=== PATIENT | female | born 1945 | race Caucasian/White ===

== ENCOUNTER 2021-10-23 07:27 | Day surgery (SDC) | payer MEDICARE ==
[2021-10-23] VITALS (8 sets, daily range): BP systolic 94–167; BP diastolic 44–81; PULSE 23–63; TEMP 97.7
[~2021-10-23] VITALS: Ht 175.3 cm; Wt 94.1 kg
[~2021-10-23 07:27] MED LIST: LASIX 20MG TABL20 MG PO; LOPRESSOR 550 MG/TAB PO; MICARDIS HCT 251 TAB PO; MOTRIN 600600 MG/TAB PO; NORVASC 5MG5 MG/TAB PO; ZOCOR 20MG20 MG PO
[2021-10-23 08:11] LABS: HEMATOCRIT 37.1 % (37.0-47.0); MEAN CELL VOLUME 87 fl (80.0-100.0); MEAN CORPUSCULAR HEMOGLOBIN 30 pg (27-31); MEAN CORPUSCULAR HGB CONC 35 g/dl (33.0-37.0); MEAN PLATELET VOLUME 8.7 fl (7.4-10.4); PLATELET COUNT 204 K/mm3 (130-400); RED BLOOD COUNT 4.27 M/mm3 (4.10-5.30); REDCELL DISTRIBUTION WIDTH-CV 11.7 % (11.5-14.5)
[2021-10-23 08:18] LABS: INR 1.8 (0.8-3.0)
[2021-10-23 08:21] LABS: PARTIAL THROMBOPLASTIN TIME 37.3 SECONDS (26.0-37.0)
[2021-10-23 08:27] LABS: CALCIUM 9.9 mg/dL (8.4-10.2); CREATININE, serum 1.34 mg/dL (0.57-1.11); POTASSIUM 4.8 mmol/L (3.5-4.5)
[2021-10-23] MEDS ORDERED: LASIX 40MG TABL40 MG PO (08:46)
[2021-10-23] MEDS ORDERED: MICARDIS80 MG PO (08:46)
[2021-10-23 08:49] LABS: THYROID STIMULATING HORMONE 3.179 uIU/mL (0.350-4.940)
[2021-10-23] MEDS ORDERED: CORDARONE200 MG/TAB PO (08:50)
[2021-10-23] MEDS ORDERED: ELIQUIS 5MG PO (08:51)
[2021-10-23] MEDS ORDERED: TOPROL XL 25MG25 MG PO (08:52)
[2021-10-23] MEDS ORDERED: PRAVACHOL10 MG PO (08:52)
[2021-10-23] MEDS ORDERED: ALDACTONE 25MG25 M1 PO (08:53)
[2021-10-23] MEDS ORDERED: LUNESTA 1MG TAB1 MG PO (08:53)
[2021-10-23] MEDS ORDERED: CALCIUM 600 MG1 EAC2 PO (08:55)
[2021-10-23] MEDS ORDERED: OMEGA-3 1000 MG1 CAP PO (08:55)
[2021-10-23] MEDS ORDERED: EYE MULTIVITAM1 EAC1 PO (08:56)
[2021-10-23] MEDS ORDERED: FLORAJEN A20 Billion PO (08:57)
[2021-10-23] MEDS ORDERED: TYLENOL PM EXTR1 TA1 PO (08:58)
[2021-10-23] MEDS ORDERED: TYLENOL 500MG500 MG PO (08:58)
[2021-10-23] MEDS ORDERED: FLONASEALLERGY NS (08:59)
[2021-10-23] MEDS ORDERED: AFRIN 15 ML15 ML NS (08:59)
[2021-10-23] MEDS ORDERED: ZQUIL PO (09:01)
[2021-10-23] MEDS ORDERED: NORVASC 5MG5 MG/TAB PO (09:14)
--- NOTE | 2021-10-23 10:56 | NUR ---
Pt care was assumed from [facility] RN at 0916. Pt remains in sinus rhythm. RT has been called for repeat EKG. Pt remained awake and alert during her recovery. She has been able to drink and eat a snack with no problem. She has been up and ambulatory around nurses station with steady gait. Dr. Recinos has been in to discuss discharge plan with pt and with her neice who is her ride home. IV is dc'd with cath intact, dressing applied. I reviewed dc/fu and rx instructions with pt and her neice, both of whom verbalized understanding. pt escorted to exit via wheelchair.
== END 2021-10-23 18:00 ==
LOC: COL.CAR 07:27
PROVIDERS: Internal Medicine Cardiovascular Disease
DX: I48.0 Paroxysmal atrial fibrillation (principal); I48.19 Other persistent atrial fibrillation; F17.210 Nicotine dependence, cigarettes, uncomplicated
CPT/HCPCS: J2704